=== PATIENT | female | born 1945 | race Two or more races ===

== ENCOUNTER → 2016-11-20 | Outpatient (CLI) | payer MEDICARE, OTHER ==
[~2016-11-20] MED LIST: ALBU90AE IH; ASPI-1061 PO; ATOR20TA65 PO; BUDE10.2 IH; CALC-895 PO; CEPH500C2 PO; CHOL100030 PO; CYAN100099; FERR324T4 PO; FURO20TA4 PO; INSU100I3 SQ; MULT-1203; OMEP10CA41 PO; PRED5TAB PO; VALS80TA26
[2016-11-20 10:37] VITALS: BP 122/54
== END | disposition home or self-care (01) ==
LOC: HBOWC 10:26
PROVIDERS: ATTEND Emergency Medicine
DX: E11.622 Type 2 diabetes mellitus with other skin ulcer (principal); L97.521 Non-pressure chronic ulcer of other part of left foot limited to breakdown of skin; I87.2 Venous insufficiency (chronic) (peripheral); E11.51 Type 2 diabetes mellitus with diabetic peripheral angiopathy without gangrene; E11.22 Type 2 diabetes mellitus with diabetic chronic kidney disease; I12.9 Hypertensive chronic kidney disease with stage 1 through stage 4 chronic kidney disease, or unspecified chronic kidney disease; N18.4 Chronic kidney disease, stage 4 (severe); E11.40 Type 2 diabetes mellitus with diabetic neuropathy, unspecified; E11.319 Type 2 diabetes mellitus with unspecified diabetic retinopathy without macular edema